=== PATIENT | male | born 1950 | race Hispanic/Latino ===

== ENCOUNTER 2025-04-27 08:44 | Emergency (ER) | payer OTHER ==
--- NOTE | 2025-04-27 08:57 | EDPHYS ---
Physician Documentation [facility] Name: Juan Baptiste Age: 74 yrs Sex: Male : 1950 Arrival Date: 04/27/2025 Time: 08:44 Bed IW3 Private MD: ED Physician Matthew Mendiola HPI: 04/27 08:49 This 74 yrs old Male presents to ER via Unassigned with complaints of Rash. kb 08:49 Pt is a 74 year old male who presents for rash to extremities and genital area that kb started last week. States it started on extremities and has spread. Concerned about infection on some of the open areas. Pt has hx of diabetes. States he has been clearing brush and believes he came into contact with poison robina or poison oak. Historical: - Allergies: 09:07 No Known Allergies; ss - PMHx: 09:09 Diabetes mellitus; ss - Infectious Disease History:: Denies. - Social history:: Smoking status: Patient denies any tobacco usage or history of. ROS: 08:49 Constitutional: As per HPI kb Exam: 08:55 Constitutional: This is a well developed, well nourished patient who is awake, alert, kb and in no acute distress. Head/Face: Normocephalic, atraumatic. ENT: Moist Mucous membranes Respiratory: Respirations even and unlabored. No increased work of breathing. Talking in full sentences MS/ Extremity: Pulses equal, no cyanosis. Neurovascular intact. Full, normal range of motion. Neuro: Awake and alert, GCS 15, oriented to person, place, time, and situation. 08:55 Skin: rash a mild rash is noted, consistent with contact dermatitis, on the pelvis, right arm, left arm, right leg and left leg, Vital Signs: 09:06 BP 139 / 72; Pulse 64; Resp 16; Temp 97.6(O); Pulse Ox 98% on R/A; Weight 83.91 kg; ss Height 5 ft. 7 in. ; Pain 0/10; 09:06 Body Mass Index 28.97 (83.91 kg, 170.18 cm) ss 09:06 Pain Scale: Adult ss MDM: 08:49 Medical Screening Exam initiated kb 08:56 Differential diagnosis: impetigo, allergic reaction, contact dermatitis. Data reviewed: kb vital signs, nurses notes. Historians other than the Patient: Spouse/Significant Other: . Counseling: I had a detailed discussion with the patient and/or guardian regarding the historical points, exam findings, and any diagnostic results supporting the discharge/admit diagnosis, the need for outpatient follow up, a family practitioner, to return to the emergency department if symptoms worsen or persist or if there are any questions or concerns that arise at home. Administered Medications: 09:13 Drug: predniSONE PO 40 mg PO once Route: PO; 09:14 Follow up: Response: Medication Administered at Departure ss 09:13 Drug: Famotidine PO 20 mg PO once Route: PO; ss 09:14 Follow up: Response: Medication Administered at Departure Disposition: 17:09 Co-signature as Attending Physician, Matthew Mendiola MD I reviewed the patient's care rn provided by the Advanced Practice Provider and agree with the diagnosis and treatment plan. Disposition Summary: 04/27/25 08:56 Discharge Ordered Notes: Location: Home kb Condition: Stable kb Diagnosis - Unspecified contact dermatitis due to plants, except food kb Followup: kb - With: Emergency Department - When: As needed - Reason: Worsening of condition Followup: kb - With: Private Physician - When: 2 - 3 days - Reason: Recheck today's complaints, Continuance of care, Re-evaluation by your physician Discharge Instructions: - Discharge Summary Sheet kb - Poison Robina Dermatitis, [id number] kb - Contact Dermatitis, [id number] kb Forms: - Medication Reconciliation Form kb - Antibiotic Education kb - Prescription Opioid Use kb - Patient Portal Instructions kb - Leadership Thank You Letter kb Prescriptions: - Cephalexin 500 mg Oral Capsule - take 1 capsule ORAL route every 8 hours for 10 days; 30 capsule; Refills: 0, kb Product Selection Permitted - Pepcid 20 mg Oral Tablet - take 1 tablet ORAL route every 12 hours for 5 days; 10 tablet; Refills: 0, kb Product Selection Permitted - Prednisone 20 mg Oral Tablet - take 1 tablet ORAL route once daily for 5 days; 5 tablet; Refills: 0, Product kb Selection Permitted Signatures: Rosemary Reid, DIRECTOR [employer]-C DIRECTOR [employer]-Matthew Cordero MD MD rn Blanchard, Shelby, RN RN ss
[2025-04-27] MEDS ORDERED: FAMOTIDINE 20 MG TAB ONE (09:03)
[2025-04-27] MEDS ORDERED: predniSONE 20 MG TAB ONE (09:03)
--- NOTE | 2025-04-27 09:14 | ER ---
Nurse's Notes [facility] Name: Juan Baptiste Age: 74 yrs Sex: Male : 1950 Arrival Date: 04/27/2025 Time: 08:44 Bed IW3 Private MD: Diagnosis: Unspecified contact dermatitis due to plants, except food Presentation: 04/27 09:07 Chief complaint: Patient states: itchy rash all over after clearing brush in the yard 1 ss week ago. Coronavirus screen: Client denies travel out of the [place] in the last 14 days. Ebola Screen: Patient denies exposure to infectious person. Patient denies travel to an Ebola-affected area in the 21 days before illness onset. Initial Sepsis Screen: Does the patient meet any 2 criteria? No. Patient's initial sepsis screen is negative. Does the patient have a suspected source of infection? No. Patient's initial sepsis screen is negative. Risk Assessment: Do you want to hurt yourself or someone else? Patient reports no desire to harm self or others. Onset of symptoms was April 20, 2025. 09:07 Method Of Arrival: Ambulatory ss 09:07 Acuity: JUDE 5 ss Historical: - Allergies: 09:07 No Known Allergies; ss - PMHx: 09:09 Diabetes mellitus; ss - Infectious Disease History:: Denies. - Social history:: Smoking status: Patient denies any tobacco usage or history of. Screenin:08 Abuse screen: Denies threats or abuse. Denies injuries from another. Nutritional ss screening: No deficits noted. Tuberculosis screening: Never had TB. Assessment: 09:08 General: Appears in no apparent distress. comfortable, Behavior is calm, cooperative. ss Pain: Denies pain. Neuro: Level of Consciousness is awake, alert, obeys commands, Oriented to person, place, time, situation. Respiratory: Airway is patent Respiratory effort is even, unlabored, Respiratory pattern is regular, symmetrical. GI: No signs and/or symptoms were reported involving the gastrointestinal system. Derm: Skin is intact, is healthy with good turgor, Skin is pink, warm \T\ dry. normal. Derm: Reports itchy rash all over x 1 week. Vital Signs: 09:06 BP 139 / 72; Pulse 64; Resp 16; Temp 97.6(O); Pulse Ox 98% on R/A; Weight 83.91 kg; ss Height 5 ft. 7 in. ; Pain 0/10; 09:06 Body Mass Index 28.97 (83.91 kg, 170.18 cm) ss 09:06 Pain Scale: Adult ss ED Course: 08:48 Patient arrived in ED. im 08:49 Rosemary Reid FNP-C is [facility]. kb 08:49 Matthew Mendiola MD is Attending Physician. kb 09:07 Triage completed. ss 09:07 Arm band placed on right wrist. ss 09:08 Patient has correct armband on for positive identification. ss 09:08 No provider procedures requiring assistance completed. Patient did not have IV access ss during this emergency room visit. Administered Medications: 09:13 Drug: predniSONE PO 40 mg PO once Route: PO; ss 09:14 Follow up: Response: Medication Administered at Departure ss 09:13 Drug: Famotidine PO 20 mg PO once Route: PO; ss 09:14 Follow up: Response: Medication Administered at Departure Outcome: 08:56 Discharge ordered by . kb 09:14 Patient left the ED. ss Signatures: Rosemary Reid FNP-C FNP-Ckb Blanchard, Shelby, RN RN Yandy Mays im
[2025-04-27 09:19] VITALS: BP 139/72; TEMP 97.6; O2SAT 98
== END 2025-04-27 09:14 | disposition home or self-care (01) ==
LOC: ER 08:44
DX: L25.5 Unspecified contact dermatitis due to plants, except food (principal)
CPT/HCPCS: 99282; J7512

== ENCOUNTER 2025-05-04 09:45 | Emergency (ER) | payer OTHER ==
[2025-05-04] MEDS ORDERED: DIPHENHYDRAMINE 25 MG TAB/CAP ONE (10:41)
[2025-05-04] MEDS ORDERED: METHYLPREDNISOLONE 125 MG INJ ONE (10:41)
--- NOTE | 2025-05-04 10:43 | EDPHYS ---
Physician Documentation [facility] Name: Juan Baptiste Age: 74 yrs Sex: Male : 1950 Arrival Date: 05/04/2025 Time: 09:45 Bed 17 Private MD: ED Physician María Tillman HPI: 05/04 10:34 This 74 yrs old Male presents to ER via Ambulatory with complaints of Rash, sp3 Wound Check. 10:34 74-year-old male with history of diabetes, hypertension, sleep apnea presents with sp3 recurrent and ongoing poison oak/poison robian symptoms on bilateral lower extremities. Patient first got this approximately 2 weeks ago while cutting some brush in his new property. He went to his PCP who gave him 5 days worth of prednisone at 20 mg and no other medication except an antibiotic. Patient states that the steroid dose was low because there were concerns of blood sugar disruption. However they report that the blood sugar has been fairly normal even during the steroid course. Subsequently they have also been normal. There concerned that the inflammation and redness is only getting worse. The itchiness is unbearable at times and patient is having a hard time sleeping. No fever reported. No drainage or fluctuant area noted. ROS otherwise negative.. Historical: - Allergies: 10:10 No Known Allergies; dd2 - PMHx: 10:10 diabetes mellitus; dd2 10:13 Sleep apnea; Hypertensive disorder; dd2 - PSHx: 10:13 abdominal sx; Appendectomy; dd2 - Immunization history:: Adult Immunizations up to date. - Infectious Disease History:: Denies. - Social history:: Smoking status: Patient denies any tobacco usage or history of. ROS: 10:37 Constitutional: Negative for fever, chills, and weight loss, Eyes: Negative for injury, sp3 pain, redness, and discharge, Neck: Negative for injury, pain, and swelling, Cardiovascular: Negative for chest pain, palpitations, and edema, Respiratory: Negative for shortness of breath, cough, wheezing, and pleuritic chest pain, Abdomen/GI: Negative for abdominal pain, nausea, vomiting, diarrhea, and constipation, Back: Negative for injury and pain, Neuro: Negative for headache, weakness, numbness, tingling, and seizure, Psych: Negative for depression, anxiety, suicide ideation, homicidal ideation, and hallucinations, Endocrine: Negative for neck swelling, polydipsia, polyuria, polyphagia, and marked weight changes, Hematologic/Lymphatic: Negative for swollen nodes, abnormal bleeding, and unusual bruising, 10:37 All other systems are negative, Exam: 10:37 Constitutional: This is a well developed, well nourished patient who is awake, alert, sp3 and in no acute distress. Head/Face: Normocephalic, atraumatic. Eyes: Pupils equal round and reactive to light, extra-ocular motions intact. Lids and lashes normal. Conjunctiva and sclera are non-icteric and not injected. Cornea within normal limits. Periorbital areas with no swelling, redness, or edema. Neck: Trachea midline, no thyromegaly or masses palpated, and no cervical lymphadenopathy. Supple, full range of motion without nuchal rigidity, or vertebral point tenderness. No Meningismus. Chest/axilla: Normal chest wall appearance and motion. Nontender with no deformity. No lesions are appreciated. Cardiovascular: Regular rate and rhythm with a normal S1 and S2. No gallops, murmurs, or rubs. Normal PMI, no JVD. No pulse deficits. Respiratory: Lungs have equal breath sounds bilaterally, clear to auscultation and percussion. No rales, rhonchi or wheezes noted. No increased work of breathing, no retractions or nasal flaring. Back: No spinal tenderness. No costovertebral tenderness. Full range of motion. Neuro: Awake and alert, GCS 15, oriented to person, place, time, and situation. Cranial nerves II-XII grossly intact. Motor strength 5/5 in all extremities. Sensory grossly intact. Cerebellar exam normal. Normal gait. Psych: Awake, alert, with orientation to person, place and time. Behavior, mood, and affect are within normal limits. 10:37 Skin: Patient has inflammatory changes consistent with topical dermatitis with poison robina or oak. Patient has been itching it however there is no signs of secondary cellulitis or abscess.. Vital Signs: 10:08 BP 129 / 54; Pulse 71; Resp 16; Temp 98.1; Pulse Ox 96% on R/A; Weight 82.74 kg; Pain dd2 10/10; 10:46 BP 132 / 51; Pulse 72; Resp 15; Temp 98.1; Pulse Ox 98% ; me1 10:08 Pain Scale: Adult dd2 MDM: 10:22 Medical Screening Exam initiated sp3 10:41 Data reviewed: vital signs, nurses notes, old medical records. ED course: Patient has sp3 contact dermatitis with poison robina or oak versus secondary process. Clinically we doubt Anguiano-Kit or other autoimmune process. We have a clear reason for his symptoms. We will place patient on steroids again at 40 mg daily as well as 125 mg IM boost dose in the ED. Also start Benadryl. Patient to follow-up with PCP.. Administered Medications: 10:46 Drug: MethylPREDNISolone Sodium Succinate IM 125 mg IM once Route: IM; Site: left me1 gluteus; 10:50 Follow up: Response: No adverse reaction me1 10:46 Drug: diphenhydrAMINE PO 25 mg PO once Route: PO; me1 10:50 Follow up: Response: No adverse reaction me1 Disposition Summary: 05/04/25 10:42 Discharge Ordered Notes: Location: Home sp3 Condition: Stable sp3 Diagnosis - Contact dermatitis, poison robina/oak sp3 Followup: sp3 - With: Private Physician - When: Upon discharge from the Emergency Department - Reason: Continuance of care Discharge Instructions: - Discharge Summary Sheet sp3 - Poison Robina Dermatitis sp3 - Poison Telephone Dermatitis sp3 Forms: - Medication Reconciliation Form sp3 - Antibiotic Education sp3 - Prescription Opioid Use sp3 - Patient Portal Instructions sp3 - Leadership Thank You Letter sp3 Prescriptions: - Prednisone 20 mg Oral Tablet - take 2 tablets ORAL route once daily for 5 days; 10 tablet; Refills: 0, Product sp3 Selection Permitted Signatures: María Tillman MD MD sp3 Sirisha Richey, RN RN me1 MARILEE SHELTON RN RN dd2 Corrections: (The following items were deleted from the chart) 10:13 10:10 PSHx: None; dd2 dd2
--- NOTE | 2025-05-04 10:43 | ER ---
Nurse's Notes [facility] Name: Juan Baptiste Age: 74 yrs Sex: Male : 1950 Arrival Date: 05/04/2025 Time: 09:45 Bed 17 Private MD: Diagnosis: Contact dermatitis, poison donald/oak Presentation: 05/04 10:08 Chief complaint: Patient states: red rash x 2 weeks after working in the yard. pt dd2 reports he was here x 1 week ago and received steroids and antibiotic but rash is worse and spreading. pt c/o itching and burning to ble, bue and abdomen. Coronavirus screen: At this time, the client does not indicate any symptoms associated with coronavirus-19. Ebola Screen: No symptoms or risks identified at this time. Initial Sepsis Screen: Does the patient meet any 2 criteria? No. Patient's initial sepsis screen is negative. Does the patient have a suspected source of infection? No. Patient's initial sepsis screen is negative. Risk Assessment: Do you want to hurt yourself or someone else? Patient reports no desire to harm self or others. Onset of symptoms is unknown. 10:08 Method Of Arrival: Ambulatory dd2 10:08 Acuity: JUDE 4 dd2 Triage Assessment: 10:10 General: Appears uncomfortable, Behavior is calm, cooperative, appropriate for age. dd2 Pain: Complains of pain in abdomen, right arm, left arm, right leg and left leg Pain currently is 10 out of 10 on a pain scale. Derm: Rash noted that is itchy, red, Reports burning, itching, pain that is 10 out of 10 on a pain scale. Historical: - Allergies: 10:10 No Known Allergies; dd2 - PMHx: 10:10 diabetes mellitus; dd2 10:13 Sleep apnea; Hypertensive disorder; dd2 - PSHx: 10:13 abdominal sx; Appendectomy; dd2 - Immunization history:: Adult Immunizations up to date. - Infectious Disease History:: Denies. - Social history:: Smoking status: Patient denies any tobacco usage or history of. Screenin:15 [facility] ED Fall Risk Assessment (Adult) History of falling in the last 3 months, me1 including since admission No falls in past 3 months (0 pts) Confusion or Disorientation No (0 pts) Intoxicated or Sedated No (0 pts) Impaired Gait No (0 pts) Mobility Assist Device Used No (0 pt) Altered Elimination No (0 pt) Score/Fall Risk Level 0 - 2 = Low Risk Maintained a safe environment, Provided non-skid footwear, Hourly rounding (assess needs \T\ fall precautionary measures) done. Abuse screen: Denies threats or abuse. Nutritional screening: No deficits noted. Tuberculosis screening: No symptoms or risk factors identified. Assessment: 10:15 General: Appears in no apparent distress. well groomed, well developed, well nourished, me1 Behavior is calm, cooperative, appropriate for age, Reports red rash x 2 weeks after working in the yard. pt reports he was here x 1 week ago and received steroids and antibiotic but rash is worse and spreading. pt c/o itching and burning to ble, bue and abdomen. Pain: Complains of pain in left leg and right leg and left arm and right arm and abdomen Pain does not radiate. Pain currently is 10 out of 10 on a pain scale. Quality of pain is described as burning, ITCHING Pain began 2 WEEKS AGO Is continuous. Neuro: Level of Consciousness is awake, alert, obeys commands, Oriented to person, place, time, situation, Appropriate for age. Cardiovascular: Patient's skin is warm and dry. Respiratory: Airway is patent Respiratory effort is even, unlabored, Respiratory pattern is regular, symmetrical. GI: No signs and/or symptoms were reported involving the gastrointestinal system. : No signs and/or symptoms were reported regarding the genitourinary system. EENT: No signs and/or symptoms were reported regarding the EENT system. Derm: Rash noted that is red, raised, on left leg and right leg and left arm and right arm and abdomen. Musculoskeletal: Circulation, motion, and sensation intact. Range of motion: intact in all extremities. Vital Signs: 10:08 BP 129 / 54; Pulse 71; Resp 16; Temp 98.1; Pulse Ox 96% on R/A; Weight 82.74 kg; Pain dd2 10/10; 10:46 BP 132 / 51; Pulse 72; Resp 15; Temp 98.1; Pulse Ox 98% ; me1 10:08 Pain Scale: Adult dd2 ED Course: 09:49 Patient arrived in ED. cj3 09:49 María Tillman MD is Attending Physician. sp3 10:10 Triage completed. dd2 10:10 Arm band placed on right wrist. dd2 10:14 Sirisha Richey, RN is Primary Nurse. me1 10:15 Patient has correct armband on for positive identification. Bed in low position. Call me1 light in reach. Side rails up X2. Provided Education on: POC. VERBALIZED UNDERSTANDING. Client placed on continuous cardiac and pulse oximetry monitoring. NIBP monitoring applied. Pulse ox on. NIBP on. 10:15 No provider procedures requiring assistance completed. me1 10:50 Patient did not have IV access during this emergency room visit. me1 Administered Medications: 10:46 Drug: MethylPREDNISolone Sodium Succinate IM 125 mg IM once Route: IM; Site: left in1 gluteus; 10:50 Follow up: Response: No adverse reaction me1 10:46 Drug: diphenhydrAMINE PO 25 mg PO once Route: PO; me1 10:50 Follow up: Response: No adverse reaction me1 Medication: 10:15 VIS not applicable for this client. me1 Outcome: 10:42 Discharge ordered by . sp3 10:50 Discharged to home ambulatory, with significant other, me1 10:50 Condition: stable 10:50 Discharge instructions given to patient, significant other, Instructed on discharge instructions, follow up and referral plans. medication usage, Demonstrated understanding of instructions, follow-up care, medications, Prescriptions given X 1, 10:50 Patient left the ED. me1 Signatures: María Tillman MD MD sp3 Sirisha Richey, RN RN me1 MARILEE SHELTON RN RN dd2 Ade Pantoja 3 Corrections: (The following items were deleted from the chart) 10:13 10:10 PSHx: None; dd2 dd2 10:15 10:08 Chief complaint: Patient states: red rash x 2 weeks after working in the yard. pt me1 reports he was here x 1 week ago and received steroids and antibiotic but rash is worse and spreading. pt c/o itching and burning to ble, bue and abdomen dd2
[2025-05-04 11:05] VITALS: TEMP 98.1
[2025-05-04 11:07] VITALS: BP 132/51; O2SAT 98
== END 2025-05-04 10:50 | disposition home or self-care (01) ==
LOC: ER 09:45
DX: L25.5 Unspecified contact dermatitis due to plants, except food (principal)
CPT/HCPCS: 96372; 99284; J2919

== ENCOUNTER 2025-05-13 08:40 | Emergency (ER) | payer OTHER ==
--- NOTE | 2025-05-13 10:08 | RAD REPORT ---
EXAM: CT brain without contrast HISTORY: fall COMPARISON: None TECHNIQUE: Multiple contiguous axial images were obtained and a CT of the brain without contrast. Sag ittal and coronal reformats were performed. FINDINGS: No evidence of hydrocephalus, intracranial hemorrhage, or extra-axial fluid collection. The brain is normal in morphology. The calvarium is intact. The visualized paranasal sinuses and mastoid air cells are essentially clear . IMPRESSION: No evidence of acute intracranial abnormality. EXAM: CT of the cervical spine without contrast HISTORY: fall COMPARISON: None TECHNIQUE: Multiple contiguous axial images were obtained in a CT of the cervical spine without contr ast. Sagittal and coronal reformats were performed. FINDINGS: The vertebral bodies demonstrate normal height and alignment. No evidence of acute fracture or subluxation.. Mild degenerative changes, predominantly along the endplates. No prevertebral soft tissue swelling is seen. The posterior facets are well aligned. Normal alignment of the skull base with the cervical spine is seen. The lung apices are unremarkable. IMPRESSION: No evidence of acute osseous abnormality of the cervical spine.
--- NOTE | 2025-05-13 10:09 | RAD REPORT ---
EXAMINATION: XR FOREARM CLINICAL INDICATION: Male, 74 years old. [facility] MAIN PAIN Bed Name: [facility] TECHNIQUE: 2 view radiograph of the left forearm were obtained. . COMPARISON: No prior exam. FINDINGS: No evidence of fracture or dislocation. Normal alignment. Enthesopathy at the triceps tendo n attachment No evidence of arthropathy or other focal bone lesion. Soft tissues are unremarkable. IMPRESSION: No acute osseous abnormalities.
--- NOTE | 2025-05-13 10:10 | RAD REPORT ---
EXAM: XR Knee Right 3 View HISTORY: [facility] MAIN PAIN Bed Name: IW2 COMPARISON: None TECHNIQUE: 3 views of the right knee were obtained. FINDINGS: No knee effusion is seen. There is no evidence of acute fracture or dislocation. No signif icant degenerative changes are seen. Enthesopathy at the quadriceps tendon attachment. No soft tissue swelling or other soft tissue abnormality is present. IMPRESSION: No evidence of acute osseous abnormality.
[2025-05-13] MEDS ORDERED: TDAP (DIPHTH,PERTUSS(ACELL),TET VAC) 0.5 ML VIAL IMVAC ONE (10:16)
--- NOTE | 2025-05-13 10:31 | ER ---
Nurse's Notes [facility] Name: Juan Baptiste Age: 74 yrs Sex: Male : 1950 Arrival Date: 05/13/2025 Time: 08:40 Bed 9 Private MD: Diagnosis: Abrasion, right knee;Fall on same level, unspecified;Pain in left wrist Presentation: 05/13 08:57 Chief complaint: Patient states: TRIPPED AND fell this morning, abrasion to yuli knee, iw pain to left palm and wrist with abrasion. Coronavirus screen: At this time, the client does not indicate any symptoms associated with coronavirus-19. Ebola Screen: No symptoms or risks identified at this time. Risk Assessment: Do you want to hurt yourself or someone else? Patient reports no desire to harm self or others. 08:57 Method Of Arrival: Ambulatory iw 08:57 Acuity: JUDE 4 iw 08:58 Initial Sepsis Screen: Does the patient meet any 2 criteria? No. Patient's initial iw sepsis screen is negative. Does the patient have a suspected source of infection? No. Patient's initial sepsis screen is negative. Onset of symptoms was May 13, 2025. Triage Assessment: 09:00 General: Appears in no apparent distress. Behavior is calm, cooperative. iw Historical: - Allergies: 08:58 No Known Allergies; iw - PMHx: 08:58 Hypertensive disorder; Sleep Apnea; diabetes mellitus; iw - PSHx: 08:58 abdominal sx; Appendectomy; iw - Immunization history:: Adult Immunizations. - Infectious Disease History:: Denies. - Social history:: Smoking status: . Screenin:20 [facility] ED Fall Risk Assessment (Adult) History of falling in the last 3 months, dd2 including since admission Yes- single mechanical fall (1 pt) Confusion or Disorientation No (0 pts) Intoxicated or Sedated No (0 pts) Impaired Gait No (0 pts) Mobility Assist Device Used No (0 pt) Altered Elimination No (0 pt) Score/Fall Risk Level 0 - 2 = Low Risk Oriented to surroundings, Maintained a safe environment, Educated pt \T\ family on fall prevention, incl call for assistance when getting out of bed, Assessed \T\ reinforced patient's understanding of fall precautions. Abuse screen: Denies threats or abuse. Denies injuries from another. Nutritional screening: No deficits noted. Tuberculosis screening: No symptoms or risk factors identified. Assessment: 09:00 General: Appears in no apparent distress. Behavior is calm, cooperative. Pain: iw Complains of pain in right knee. Neuro: Level of Consciousness is awake, alert, obeys commands, Oriented to person, place, time, situation, Moves all extremities. Full function. Cardiovascular: Patient's skin is warm and dry. Respiratory: Respiratory effort is even, unlabored, Respiratory pattern is regular, symmetrical. Derm: Skin Skin is. Musculoskeletal: Capillary refill < 3 seconds. Vital Signs: 08:58 BP 127 / 55; Pulse 80; Resp 16; Temp 98.7; Pulse Ox 95% on R/A; Weight 82.1 kg; Height iw 5 ft. 7 in. ; 08:58 Body Mass Index 28.35 (82.10 kg, 170.18 cm) iw ED Course: 08:42 Patient arrived in ED. al6 08:47 Tavon Haro DO is Attending Physician. ms3 08:58 Triage completed. iw 09:00 Arm band placed on. iw 09:00 Patient has correct armband on for positive identification. Provided Education on: . iw 09:17 CT Head C Spine In Process Unspecified. EDMS 09:32 Knee Right 3 View XRAY In Process Unspecified. EDMS 09:32 Forearm Left XRAY In Process Unspecified. EDMS 10:54 Araceli Kemp, RN is Primary Nurse. iw 11:07 No provider procedures requiring assistance completed. Patient did not have IV access ss during this emergency room visit. Administered Medications: 10:20 Drug: Boostrix Tdap IM 0.5 ml IM once; as a single dose Route: IM; Site: right deltoid; dd2 10:25 Follow up: Response: No adverse reaction iw Medication: 10:20 Vaccine Information Statement (VIS) provided today. Questions and/or concerns dd2 addressed. VIS edition date: March 11, 2021. Outcome: 10:31 Discharge ordered by . ms3 11:07 Discharged to home ambulatory, ss 11:07 Condition: good 11:07 Discharge instructions given to patient, Instructed on discharge instructions, follow up and referral plans. Demonstrated understanding of instructions, follow-up care, 11:07 Patient left the ED. ss Signatures: Dispatcher [employer] Araceli Martinez, RN RN iw Miranda Foley, DEYANIRA RN ss Tavon Haro, DO ms3 MARILEE SHELTON RN RN dd2 Joy [email or web address] Corrections: (The following items were deleted from the chart) 08:58 08:58 BP 127 / 55; Pulse 80bpm; Resp 16bpm; Pulse Ox 95% RA; Temp 98.7F; iw
--- NOTE | 2025-05-13 10:31 | EDPHYS ---
Physician Documentation [facility] Name: Juan Baptiste Age: 74 yrs Sex: Male : 1950 Arrival Date: 05/13/2025 Time: 08:40 Bed 9 Private MD: ED Physician Tavon Haro HPI: 05/13 19:57 This 74 yrs old Male presents to ER via Ambulatory with complaints of Fall ms3 Injury. 19:57 74-year-old male past medical history of hypertension, sleep apnea, diabetes presents ms3 to the emergency department for fall that occurred after he tripped on the sidewalk. Patient is unaware of his tetanus vaccination status. Patient denies hitting his head, taking blood thinners, or loss of consciousness. Patient states he is having 3/10 knee pain and 8/10 left wrist pain.. Historical: - Allergies: 08:58 No Known Allergies; iw - PMHx: 08:58 Hypertensive disorder; Sleep Apnea; diabetes mellitus; iw - PSHx: 08:58 abdominal sx; Appendectomy; iw - Immunization history:: Adult Immunizations. - Infectious Disease History:: Denies. - Social history:: Smoking status: . ROS: 19:57 Constitutional: Negative for fever, and chills. Cardiovascular: Negative for chest ms3 pain, and palpitations. Respiratory: Negative for shortness of breath, cough, wheezing, and pleuritic chest pain, Abdomen/GI: Negative for abdominal pain, nausea, vomiting, diarrhea, and constipation, MS/Extremity: Negative for injury and deformity, 19:57 Skin: Positive for abrasion(s), Exam: 19:57 Constitutional: This is a well developed, well nourished patient who is awake, alert, ms3 and in no acute distress. Cardiovascular: Regular rate and rhythm with a normal S1 and S2. No gallops, murmurs, or rubs. Normal PMI, no JVD. No pulse deficits. Respiratory: Lungs have equal breath sounds bilaterally, clear to auscultation and percussion. No rales, rhonchi or wheezes noted. No increased work of breathing, no retractions or nasal flaring. Abdomen/GI: Soft, non-tender, with normal bowel sounds. No distension or tympany. No guarding or rebound. No evidence of tenderness throughout. 19:57 Skin: injury, abrasion(s), small abrasion noted, of the right knee, Small abrasion to left palmar surface of hand, Vital Signs: 08:58 BP 127 / 55; Pulse 80; Resp 16; Temp 98.7; Pulse Ox 95% on R/A; Weight 82.1 kg; Height iw 5 ft. 7 in. ; 08:58 Body Mass Index 28.35 (82.10 kg, 170.18 cm) iw MDM: 08:47 Medical Screening Exam initiated ms3 19:57 Differential diagnosis: abrasion, closed head injury, contusion, fracture, sprain, ms3 strain. Data reviewed: vital signs, nurses notes, radiologic studies, and as a result, I will discharge patient. I considered the following discharge prescriptions or medication management in the emergency department Medications were administered in the Emergency Department. See MAR. Independent interpretation of the following test(s) in the Emergency Department CT Scan: My interpretation is CT Head without contrast images reviewed by me do not reveal ICH. Counseling: I had a detailed discussion with the patient and/or guardian regarding the historical points, exam findings, and any diagnostic results supporting the discharge/admit diagnosis, radiology results, the need for outpatient follow up, to return to the emergency department if symptoms worsen or persist or if there are any questions or concerns that arise at home. Special discussion: I discussed with the patient/guardian in detail that at this point there is no indication for admission to the hospital. It is understood, however, that if the symptoms persist or worsen the patient needs to return immediately for re-evaluation. ED course: Discussed imaging results with patient's . Patient given tetanus vaccine in the emergency department. Patient to follow-up with his primary care physician in 2 to 3 days. Patient understands and agrees with plan. All questions were answered. Return precautions were discussed include worsening symptoms, or any other concerns. 05/13 09:04 Order name: CT Head C Spine; Complete Time: 10:12 ms3 05/13 09:05 Order name: Knee Right 3 View XRAY; Complete Time: :12 ms3 05/13 09:05 Order name: Forearm Left XRAY; Complete Time: :12 ms3 Administered Medications: 10:20 Drug: Boostrix Tdap IM 0.5 ml IM once; as a single dose Route: IM; Site: right deltoid; dd2 10:25 Follow up: Response: No adverse reaction iw Disposition: 20:07 Chart complete. ms3 Disposition Summary: 05/13/25 10:31 Discharge Ordered Notes: Location: Home ms3 Condition: Stable ms3 Diagnosis - Abrasion, right knee ms3 - Fall on same level, unspecified ms3 - Pain in left wrist ms3 Followup: ms3 - With: Private Physician - When: 2 - 3 days - Reason: Recheck today's complaints Discharge Instructions: - Discharge Summary Sheet ms3 - Fall Prevention in the Home, Adult ms3 - Musculoskeletal Pain ms3 Forms: - Medication Reconciliation Form ms3 - Antibiotic Education ms3 - Prescription Opioid Use ms3 - Patient Portal Instructions ms3 - Leadership Thank You Letter ms3 Signatures: Dispatcher [employer] Araceli Martinez, RN DEYANIRA iw Tavon Haro DO DO ms3 MARILEE SHELTON RN RN dd2
[2025-05-13 11:34] VITALS: BP 127/55; TEMP 98.7; O2SAT 95
== END 2025-05-13 11:07 | disposition home or self-care (01) ==
LOC: ER 08:40
DX: S80.211A Abrasion, right knee, initial encounter (principal); M25.532 Pain in left wrist; W18.30XA Fall on same level, unspecified, initial encounter; Z23 Encounter for immunization
CPT/HCPCS: 70450; 72125; 90715; 96372; 99284